=== PATIENT | female | born 1940 | race Caucasian/White ===

== ENCOUNTER 2021-02-10 16:34 | Emergency (ER) | payer MEDICARE, OTHER ==
[~2021-02-10] VITALS: Ht 165.1 cm; Wt 73.0 kg
[2021-02-10 16:55] VITALS: BP 148/64
[2021-02-10] MEDS: MORPHINE SULFATE 10 MG/ML VIAL. IM ONE (17:17)
--- NOTE | 2021-02-10 17:36 | RAD ---
2 view right shoulder study Clinical indications: Fall and right shoulder pain. FINDINGS: There is an impacted fracture of the proximal right humeral metaphysis with foreshortening. No dislocation of the glenohumeral joint is seen. No AC joint separation is seen. 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 No lytic process is evident. IMPRESSION: Impacted fracture of the proximal right humerus. Electronically signed by: Aram Darby MD (02/10/2021 5:34 PM) [id number]
[2021-02-10] MEDS ORDERED: HYDR-2759 PO (17:57)
--- NOTE | 2021-02-10 17:57 | PHYS DOC ---
General Adult EDM: Chief Complaint: MECHANICAL FALL HPI: HPI: Patient is a 80 year old female who presents to the ED today complaining of moderate pain to the right shoulder that began today after she fell. Patient is a very poor historian. She is from the [place]. She is denying any loss of consciousness, denies hitting her head on the ground. Her speech is not clear though this is chronic. Review of Systems: Review of Systems: Constitutional: Denies fever or chills. [] Eyes: Denies change in visual acuity. [] HENT: Denies nasal congestion or sore throat. [] Respiratory: Denies cough or shortness of breath. [] Cardiovascular: Denies chest pain or edema. [] GI: Denies abdominal pain, nausea, vomiting, bloody stools or diarrhea. [] : Denies dysuria. [] Musculoskeletal: Reports right shoulder pain, denies any low back pain Integument: Denies rash. [] Neurologic: Denies headache, focal weakness or sensory changes. [] Psychiatric: Denies depression or anxiety. [] Heart Score: C/O Chest Pain: N/A Risk Factors: Risk Factors: DM, Current or recent (<one month) smoker, HTN, HLP, family history of CAD, obesity. Risk Scores: Score 0 - 3: 2.5% MACE over next 6 weeks - Discharge Home Score 4 - 6: 20.3% MACE over next 6 weeks - Admit for Clinical Observation Score 7 - 10: 72.7% MACE over next 6 weeks - Early Invasive Strategies Current Medications: Current Medications Medications (Trade) Dose Ordered Sig/[facility] Start Time Stop Time Status Last Admin Dose Admin Morphine Sulfate (Morphine Sulfate) 5 mg 1X ONCE 02/10/21 17:15 02/10/21 17:16 DC 02/10/21 17:17 5 MG Allergies: Allergies: Allergies Coded Allergies Type Severity Reaction Last Updated Verified No Known Drug Allergies 02/10/21 No Physical Exam: PE: Constitutional: Well developed, well nourished, no acute distress, non-toxic appearance. [] HENT: Normocephalic, atraumatic, bilateral external ears normal, oropharynx moist, no oral exudates, nose normal. [] Eyes: PERRLA, EOMI, conjunctiva normal, no discharge. [] Neck: Normal range of motion, no tenderness, supple, no stridor. [] Cardiovascular:Heart rate regular rhythm, no murmur [] Lungs & Thorax: Bilateral breath sounds clear to auscultation [] Abdomen: Bowel sounds normal, soft, no tenderness, no masses, no pulsatile masses. [] Skin: Warm, dry, no erythema, no rash. [] Back: No tenderness, no CVA tenderness. [] Extremities: Patient is febrile in the right upper extremity, tenderness on palpation of the right proximal and mid humerus. Limited range of motion to the right shoulder due to pain. Adequate radial, medial, ulnar sensation to the right upper extremity. +2 right radial pulse. Cap refill less than 2 seconds of right fingers Neurologic: Alert and oriented X 3, normal motor function, normal sensory function, no focal deficits noted. [] Psychologic: Affect normal, judgement normal, mood normal. [] Current Patient Data: Vital Signs: Vital Signs Date Time Temp Pulse Resp B/P (MAP) Pulse Ox O2 Delivery O2 Flow Rate FiO2 02/10/21 17:17 18 99 Room Air EKG: EKG: [] Radiology/Procedures: Radiology/Procedures: []REASON: fall pain PROCEDURE: SHOULDER 2+V RIGHT 2 view right shoulder study Clinical indications: Fall and right shoulder pain. FINDINGS: There is an impacted fracture of the proximal right humeral metaphysis with foreshortening. No dislocation of the glenohumeral joint is seen. No AC joint separation is seen. 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 No lytic process is evident. IMPRESSION: Impacted fracture of the proximal right humerus. Electronically signed by: Ignacio Darby MD (02/10/2021 5:34 PM) [id number] DICTATED and SIGNED BY: IGNACIO DARBY MD DATE: 02/10/21 [id number] 0 Course & Med Decision Making: Course & Med Decision Making Pertinent Labs and Imaging studies reviewed. (See chart for details) This is a 80-year-old female patient presented to the ED today with right shoulder pain after falling. Right shoulder x-rays interpreted by radiologist were noted for impacted fracture of the proximal right humerus. Patient was placed in a sling, neurovascular exam done post sling application is normal. Ice elevation encouraged. Follow-up with orthopedic doctor on Friday Eren Disclaimer: Eren Disclaimer: This electronic medical record was generated, in whole or in part, using a voice recognition dictation system. Departure Departure Impression: Primary Impression: Humerus fracture Qualified Codes: S42.201A - Unspecified fracture of upper end of right humerus, initial encounter for closed fracture Additional Impression: Fall Qualified Codes: W19.XXXA - Unspecified fall, initial encounter Disposition: HOME SELF CARE/HOMELESS Condition: STABLE Referrals: JAMIL LOYA MD Please call him on Friday and set up a follow up appointment Additional Instructions: You were evaluated in the emergency room and you have a fracture of the right shoulder. Please wear the splint provided. Please contact the provided orthopedic doctor on Friday and follow-up. Scripts Hydrocodone/Acetaminophen (Hydrocodone-Acetamin 5-325 mg) 1 Each Tablet 1 EACH PO Q6HRS, #20 TAB Prov: NASRIN INFANTE APRN 02/10/21 NASRIN INFANTE APRN Feb 10, 2021 17:57
== END 2021-02-10 18:23 | disposition home or self-care (01) ==
LOC: ER 16:34
DX: S42.291A Other displaced fracture of upper end of right humerus, initial encounter for closed fracture (principal); R20.2 Paresthesia of skin; W18.39XA Other fall on same level, initial encounter; Y93.89 Activity, other specified; Y92.89 Other specified places as the place of occurrence of the external cause; Y99.8 Other external cause status
CPT/HCPCS: 73030; 96372; 99284; A4565; J2270